=== PATIENT | female | born 1955 | race Caucasian/White ===

== ENCOUNTER → 2024-04-12 09:26 | Outpatient (BNVA) | payer MEDICARE, SELFPAY | PROVIDERS: PCP Nurse Practitioner Family; Visit Provider Nurse Practitioner | DX: K21.9 Gastro-esophageal reflux disease without esophagitis (principal); J01.90 Acute sinusitis, unspecified; B96.89 Other specified bacterial agents as the cause of diseases classified elsewhere; I10 Essential (primary) hypertension; R10.9 Unspecified abdominal pain; Z76.89 Persons encountering health services in other specified circumstances | CPT/HCPCS: 80053; 80061; 85025 ==

== ENCOUNTER 2024-04-28 08:32 | Outpatient (CLI) | payer MEDICARE, SELFPAY ==
--- NOTE | 2024-04-28 08:42 | US_ITS ---
WS: [id number] Complete ABDOMINAL ULTRASOUND HISTORY: ABDOMINAL PAIN COMPARISON: None available. Liver: 15.1 cm in length. Normal size liver. Coarse echotexture with increased attenuation from hepatic steatosis. Portal Vein: Normal hepatopetal flow with monophasic waveform. Gallbladder: Normally distended gallbladder with no stones or wall thickening. CBD: 0.5 cm Pancreas: Normal size and echogenicity. Right kidney: 10.4 cm x 4.4 x 4.3 cm. Cortex:1.0 cm. Normal size kidney. No hydronephrosis. Cortical cyst mid kidney measures 0.8 x 1.1 x 1.3 cm. Left kidney: 11.7 cm x 5.3 cm x 5.0 cm. Cortex: 1.3 cm. Cortical cyst lower pole measures 1.1 x 1.4 x 1.2 cm. There is also mild cortical thinning of the lower pole. Spleen: 9.9 cm. Normal size and echogenicity. Aorta and IVC: Unremarkable abdominal aorta and IVC. US/US abdomen complete* [id number] Impression: 1. Normal gallbladder. 2. Simple bilateral renal cysts. 3. No intrahepatic duct dilatation. 4. Mild hepatic steatosis.
== END 2024-04-28 08:33 | disposition home or self-care (01) ==
PROVIDERS: Visit Provider Nurse Practitioner
DX: R10.9 Unspecified abdominal pain (principal); N28.1 Cyst of kidney, acquired; K76.0 Fatty (change of) liver, not elsewhere classified; R93.422 Abnormal radiologic findings on diagnostic imaging of left kidney
CPT/HCPCS: 76700

== ENCOUNTER → 2024-05-09 08:32 | Outpatient (BNVA) | payer MEDICARE, SELFPAY | PROVIDERS: PCP Nurse Practitioner; Visit Provider Student in an Organized Health Care Education/Training Program | DX: K21.9 Gastro-esophageal reflux disease without esophagitis (principal); R12 Heartburn | CPT/HCPCS: 99204 ==

== ENCOUNTER 2024-05-31 08:38 | Day surgery (SDC) | payer MEDICARE, SELFPAY ==
[2024-05-31 08:52] VITALS: BP 133/76; PULSE 78; RESP 17; TEMP 36.3; O2SAT 95; BMI 34.5
[2024-05-31] MEDS: sodium chloride 0.9% 500 ML 15 ML IV (08:56)
--- NOTE | 2024-05-31 09:03 | ANES.PREANE2 ---
Pre-Anesthetic Assessment Height/Weight: Height 1.6 m Weight 88.451 kg Temp Pulse Resp BP Pulse Ox O2 Del Method 97.4 F L 78 17 133/76 95 Room Air 05/31/24 08:52 05/31/24 08:52 05/31/24 08:52 05/31/24 08:52 05/31/24 08:52 05/31/24 08:52 Preop Diagnosis: GERD Operation Date: 05/31/24 09:30 Proposed Procedures p EGD [id number] R12(Not Applicable) - Xavier Vigil MD Familial anesthetic complications: none Was Beta Kalee taken within 24 hours: N/A Last intake: Intake Last Liquid Date 05/30/24 Last Liquid Time 21:00 Last Solid Date 05/30/24 Last Solid Time 20:00 Social Alcohol (weekly wine) and No tobacco Exam alert, oriented x 3, clear to auscultation bilaterally and regular rate & rhythm Airway Submandibular: within normal limits Cervical ROM: within normal limits Mallampati: Class II Dentition: full Pulmonary None reported CV/HEM Atrial Fibrillation (previous ablation) and Hypertension Chronic Renal Insufficiency (stage 3) Hepatic None reported GI Gastroesophageal Reflux Disease Metabolic None reported Musc/skel None reported Neuropsych None reported Anesthetic Plan ASA status: 2 Anesthesia: MAC Medications/Allergies Home Medications ?Medication ?Instructions ?Recorded ?Confirmed ?Last Taken ?Type chlorthalidone 25 mg tablet 25 mg PO DAILY 12/01/23 05/26/24 05/26/24 History irbesartan 75 mg tablet 75 mg PO DAILY 12/01/23 05/31/24 05/30/24 History cetirizine 10 mg tablet 10 mg PO DAILY 05/26/24 05/31/24 05/30/24 History ryiszecdmwe-fhzbqncez-bdr C-Mn 500 1 cap PO DAILY 05/26/24 05/26/24 05/26/24 History mg-400 mg capsule (Glucosamine Chondroitin Maximum Strength) ofngwfsalgda-lzdzxyjc-QD-omega 1 cap PO DAILY 05/26/24 05/26/24 05/26/24 History 3,6,9 #3 400 mcg capsule Allergies Allergy/AdvReac Type Severity Reaction Status Date / Time ibuprofen Allergy Intermediate ALGY-Hives Verified 05/31/24 08:50 Current Medications Generic Name Dose Route Start Last Admin Trade Name Freq PRN Reason Stop Dose Admin Sodium Chloride 500 mls @ 15 mls/hr 05/31/24 08:40 05/31/24 08:56 Sodium Chloride 0.9% IV 06/01/24 08:39 15 mls/hr .Q24H PRN Administration COLONOSCOPY FLUIDS PFSH Anesthesia Family History (Updated 05/09/24 @ 08:55 by CHAZ Narayan) Family/Other Rheumatoid arthritis Cancer pancreatic Social History Smoking and tobacco/nicotine status: never used tobacco/nicotine Data Anesthesia Cardiac Studies: No Data to Display
--- NOTE | 2024-05-31 09:30 | W.PM.OPSUD ---
Surgery/Procedure H&P Update DATE OF PROCEDURE: May 31, 2024 DATE H&P PERFORMED: 05/09/24 H&P UPDATE INFORMATION: I have reviewed H&P completed within last 30 days, I have examined patient prior to procedure and No changes to prior documentation PREOP DIAGNOSIS: GERD PLANNED PROCEDURE: Operation Date: 05/31/24 09:30 Proposed Procedures p EGD [id number] R12(Not Applicable) - Xavier Vigil MD
[2024-05-31 09:44] VITALS: BP 94/57; PULSE 64; RESP 18; TEMP 36.1; O2SAT 100
[2024-05-31 09:53] VITALS: BP 115/67; PULSE 67; RESP 18; TEMP 36.1; O2SAT 98
--- NOTE | 2024-05-31 10:17 | ANE.PACU2 ---
Inpatient post-anesthesia follow up: Airway intact: Yes Vital signs: Temperature 97 F Pulse Rate 67 Respiratory Rate 18 Blood Pressure 115/67 Pulse Oximetry 98 Oxygen Delivery Me thod Room Air Oxygen Flow Rate Fraction of Inspir ed Oxygen Hydration adequate: Yes Nausea and vomiting: No Pain level: 1 Mental status: Baseline
== END 2024-05-31 10:17 | disposition home or self-care (01) ==
PROVIDERS: PCP Nurse Practitioner; Visit Provider Student in an Organized Health Care Education/Training Program
PROC: 0DJ08ZZ Inspection of Upper Intestinal Tract, Via Natural or Artificial Opening Endoscopic (ICD-10-PCS; principal; 2024-05-31 09:30)
DX: K21.00 Gastro-esophageal reflux disease with esophagitis, without bleeding (principal); K29.00 Acute gastritis without bleeding; K29.50 Unspecified chronic gastritis without bleeding; I48.91 Unspecified atrial fibrillation; I12.9 Hypertensive chronic kidney disease with stage 1 through stage 4 chronic kidney disease, or unspecified chronic kidney disease; N18.30 Chronic kidney disease, stage 3 unspecified; Z79.899 Other long term (current) drug therapy; M06.9 Rheumatoid arthritis, unspecified; Z80.0 Family history of malignant neoplasm of digestive organs
CPT/HCPCS: 43239; 88305; J2704; J7040

== ENCOUNTER → 2024-06-13 11:15 | Outpatient (BNVA) | payer MEDICARE, SELFPAY | PROVIDERS: PCP Nurse Practitioner; Visit Provider Student in an Organized Health Care Education/Training Program | DX: Z09 Encounter for follow-up examination after completed treatment for conditions other than malignant neoplasm (principal) | CPT/HCPCS: 99214 ==